=== PATIENT | male | born 1960 | race Caucasian/White ===

== ENCOUNTER 2022-11-22 07:31 | Emergency (ER) | payer MEDICARE, MEDICAID, SELFPAY ==
--- NOTE | ~2022-11-22 | XR_ITS ---
EXAMINATION: XR CHEST CLINICAL INFORMATION: Chest pain COMPARISON: None available. TECHNIQUE: Frontal view of the chest was obtained. FINDINGS: The cardiac silhouette is slightly enlarged. There are post-CABG changes. There is pulmonary venous redistribution, increased perihilar markings and small bilateral pleural effusions. Findings are suggestive of a PA chest. Median sternotomy with broken superior wires. XR/XR chest 1V IMPRESSION: Mild CHF.
--- NOTE | ~2022-11-22 | CT_ITS ---
EXAMINATION: CT ANGIOGRAM OF THE CHEST WITH AND WITHOUT CONTRAST (CT PULMONARY ANGIOGRAM FOR PE) CT ABDOMEN AND PELVIS WITH CONTRAST CLINICAL INFORMATION: Chest pain. Recent surgery. PE? Abdominal pain. COMPARISON: 11/22/2015 TECHNIQUE: Prior to contrast administration, noncontrast localization images were obtained. Subsequently, multidetector volumetric imaging was performed from the thoracic inlet to the pubic symphysis following the administration of 85 mL Omnipaque 350 intravenous contrast. This was followed by multidetector acquisition of the abdomen and pelvis. No contrast reaction reported Sagittal, coronal, and MIP oblique sagittal reformatted images were obtained on the CT workstation, uploaded to PACS, and reviewed. This CT examination was performed using dose optimization techniques as appropriate, variously including the following: *Automated exposure control *Adjustment of mA and/or kV according to patient size (this includes techniques or standardized protocols for targeted exams where dose is matched to indication/reason for exam; i.e. extremities or head) *Use of iterative reconstruction technique Total exam dose-length product 890 mGy-cm FINDINGS: QUALITY OF STUDY/CONTRAST BOLUS: Satisfactory. PULMONARY ARTERIES: No pulmonary arterial filling defect is seen within the anterior aspect of the left lower lobe and segmental and subsegmental branches, series 10 image 268. There is also subsegmental right lower lobe pulmonary artery filling defect on image 335. Right middle lobe segmental filling defect on image 228. THORACIC AORTA: No aneurysm or dissection. LUNG: The central airways are patent. Severe centrilobular and paraseptal emphysema. Small bilateral pleural effusions with associated atelectasis. No pneumothorax. MEDIASTINUM: Enlarged heart size. Coronary artery calcifications are present. No pericardial effusion. No hilar or mediastinal lymphadenopathy. No evidence of septal bowing or right heart strain. CHEST WALL/AXILLA: No axillary or internal mammary lymphadenopathy. LIVER, GALLBLADDER, AND BILIARY TREE: Normal size of the liver with somewhat heterogeneous attenuation. No focal hepatic lesion seen. No ductal dilatation. The gallbladder is unremarkable with no evidence of radiopaque gallstones, gallbladder wall thickening, or obvious pericholecystic inflammatory changes. PANCREAS: Unremarkable. SPLEEN: Unremarkable. ADRENAL GLANDS: Unremarkable. KIDNEYS AND URETERS: The kidneys are normal in size, shape, and attenuation. No hydronephrosis, hydroureter, or calculi seen. No perinephric stranding. BLADDER: Unremarkable. GASTROINTESTINAL TRACT: There is a gastrojejunostomy tube which coils in the stomach. There appears to be a gastrojejunal anastomosis separate anastomosis in the right upper quadrant. Associated with this there is a complex fluid collection with gas. This area measures 6.2 x 4.3 cm on image 34. This measures 7.6 cm CC and is mostly ill-defined. Small amount of free fluid in the pelvis. Normal caliber small bowel without obstruction. Gas and stool within the colon with mild colonic stool burden. No definite free intraperitoneal air. ABDOMINAL WALL: Midline skin lui anteriorly. Diffuse anasarca. LYMPH NODES: Normal. VASCULAR: Aortobiiliac stent graft. Extensive atherosclerotic vascular calcification. PELVIC VISCERA: The prostate and seminal vesicles are unremarkable. OSSEOUS STRUCTURES: No acute or suspicious osseous abnormality. Mild degenerative changes of the spine and hips. CT/CT angio chest PE protocol IMPRESSION: 1. There are bilateral segmental and subsegmental pulmonary emboli. No evidence for elevated right heart pressures. 2. Small bilateral pleural effusions with associated atelectasis. Severe emphysema. 3. Patient is status post gastrojejunal anastomosis status post reported perforated duodenal ulcer. Associated with this there is a complex fluid collection with gas in the right upper quadrant. This is concerning for developing abscess. 4. Gastrojejunostomy tube curls in the stomach. VTE: positive This critical result was discussed with RANJIT Morejon by telephone at 11/22/2022 11:01 AM and it was ascertained that the content and urgency of the report was understood at the time of direct communication.
[2022-11-22 07:46] VITALS: BP 118/83; BP 124/80; PULSE 104; PULSE 81; RESP 16; TEMP 36.8; O2SAT 93; BMI 20.3
[2022-11-22 07:51] VITALS: PULSE 122
--- NOTE | 2022-11-22 07:51 | ECG_ITS ---
Test Reason : chest pain Blood Pressure : / mmHG Vent. Rate : 122 BPM Atrial Rate : 000 BPM P-R Int : 000 ms QRS Dur : 132 ms QT Int : 340 ms P-R-T Axes : 000 211 -01 degrees QTc Int : 484 ms Atrial fibrillation with rapid ventricular response with premature ventricular or aberrantly conducted complexes Right bundle branch block Abnormal ECG When compared with ECG of 28-NOV-2015 03:07, Atrial fibrillation has replaced Sinus rhythm Vent. rate has increased BY 47 BPM Right bundle branch block is now Present Referred By: Leroy Cooper Electronically Signed By:Curly Swartz
[2022-11-22 08:20] LABS: MANUAL DIFF FLAG NO
[2022-11-22] MEDS: HYDROmorphone HCl 0.5 MG/0.5 ML SYRINGE IVPUSH ×2 (08:22→11:31)
--- NOTE | 2022-11-22 08:23 | PC.NURSE ---
pt arrived via ems from [facility]; axox4, VSS, respirations even and unlabored, skin wpd, cap refill <3 seconds, sats 93-96% 2L NC, rapid afib on monitor 103-122bpm, Leroy CHURCH aware. c/o cp & dyspnea x 7 hours. abd incision from previous surgery intact lui in place no s+s of infection; procedure for bleeding ulcers done at [facility] 2-3 days ago. gtube dressing in place. pt states abd pain around incision. iv established, labs drawn, pt medicated per jul. pt on bedside heart monitor, call calzada within reach. awaiting imaging.
[2022-11-22 08:26] LABS: Basophils Percent Auto 0.3 % (0-2); Eosinophils Absolute Auto 0.1 X10*3/uL (0.0-0.4); Eosinophils Percent Auto 0.6 % (0-4); Hematocrit 30.1 % (42.0-52.0); Hemoglobin 8.6 g/dl (14.0-18.0); Imm Gran Abs Auto 0.08 X10*3/uL (0.00-0.03); Imm Gran Pct Auto 0.5 % (0.0-0.4); Lymphocytes Absolute Auto 1.1 X10*3/uL (1.2-4.9); Mean Corpuscular HGB Conc 28.6 g/dl (31.0-36.0); Mean Corpuscular Hemoglobin 19.2 pg (27.0-33.0); Mean Platelet Volume 9.9 fL (9.4-12.4); Monocytes Absolute Auto 0.8 X10*3/uL (0.1-1.2); Monocytes Percent Auto 5.1 % (2-11); Neutrophils Absolute Auto 13.8 x10*3/uL (2.0-8.3); Neutrophils Percent Auto 86.5 % (45-73); Platelet Count 429 X10*3/uL (160-400); Red Blood Count 4.49 X10*6/uL (4.60-5.80); Red Cell Distribution Width 25.2 % (11.0-16.0); White Blood Count 15.9 X10*3/uL (4.8-10.8)
[2022-11-22 08:28] LABS: INTERNATIONAL NORM RATIO 1.4 (0.9-1.1); Prothrombin Time 16.5 SEC (10.0-13.1)
[2022-11-22 08:31] LABS: Partial Thromboplastin Time 27.2 SEC (26.0-36.4)
[2022-11-22 08:41] LABS: COVID-19 Test Negative (Negative); IDNOW Serial# 08D9AD1C
[2022-11-22 08:42] LABS: B Type Natriuretic Peptide 406 pg/mL (<100)
[2022-11-22 08:44] LABS: Troponin-I High Sensitivity 15.8 ng/L (<3.5-35.0)
[2022-11-22] MEDS: dilTIAZem HCL 50 MG/10 ML VIAL 10 MG IVPUSH (08:58)
[2022-11-22 09:02] VITALS: BP 114/63; PULSE 106; RESP 17; O2SAT 92
--- NOTE | 2022-11-22 09:06 | PC.NURSE ---
pt speaking full clear sentences; pt medicated per mar cp improved slightly. inspiratory crackles to bilat. lower lobes. +bs x4. sats remain 90-95% RA.
[2022-11-22 09:17] LABS: Anion Gap 10 (12-20)
[2022-11-22 09:21] LABS: Alanine Aminotransferase 23 U/L (0-40); Albumin Level 2.5 g/dL (3.5-5.0); Alkaline Phosphatase 91 U/L (39-117); Aspartate Amino Transferase 23 U/L (5-37); Bilirubin Total 0.4 mg/dL (0.0-1.0); Blood Urea Nitrogen 16 mg/dL (9-16); Calcium 8.3 mg/dL (8.4-10.2); Carbon Dioxide 27 mmol/L (22-29); Chloride 101 mmol/L (96-108); Creatinine Clr Calc Pharmacy 96.9; Estimated Glomerular Filt Rate > 60; Glucose Random 111 mg/dL (60-115); Lipase 30 U/L (8-78); Potassium 4.3 mmol/L (3.3-5.1); Sodium 134 mmol/L (135-145); Total Protein 6.2 g/dL (6.5-8.0)
--- NOTE | 2022-11-22 10:46 | ED.CHESTPAIN ---
HPI - Chest Pain General Chief Complaint: Chest Pain Stated Complaint: Pain s/p stomach surgery per EMS Time Seen by Provider: 11/22/22 07:37 Source: patient Mode of arrival: ambulatory Limitations: no limitations History of Present Illness HPI narrative: 62-year-old male history of AFib, CABG, multiple history of GI bleed, and recent perforated abdomen surgery performed at [facility] presents to ED for chest pain that began at 01:00 this morning and also abdominal pain at surgical site that began this morning at 01:00. Patient states no fever, chills, leg swelling, or calf pain. Patient from [facility]. Patient states he was discharged from [facility] 2 days ago. Related Data Allergies Allergy/AdvReac Type Severity Reaction Status Date / Time celecoxib [From CELEBREX] Allergy Unknown UNKNOWN Verified 11/22/22 08:37 fluoxetine [Prozac] Allergy Unknown Unknown Verified 11/22/22 08:37 hydrocodone [HYDROCODONE] Allergy Unknown ITCHING Verified 11/22/22 08:37 ketamine Allergy Unknown Unknown Verified 11/22/22 08:37 oxycodone [OXYCODONE] Allergy Unknown ITCHING Verified 11/22/22 08:37 acetaminophen [From Tylenol] Allergy Unknown Verified 11/22/22 08:38 NSAIDS (Non-Steroidal AdvReac Severe HX GI Verified 11/22/22 08:37 Anti-Inflamma BLEEDS [NSAIDS (NON-STEROIDAL ANTI-INFLAMMA] morphine [MORPHINE] AdvReac Unknown UNKNOWN Verified 11/22/22 08:37 MUSCLE RELAXERS Allergy Unknown Unknown Uncoded 11/22/22 08:37 Review of Systems Review of Systems: Chest pain, or palpitation, no abdominal pain. Yes all other systems are reviewed and are negative [facility] Social History Social History Advance Directives: No Physical Exam Vital Signs: Vital Signs: Last Vital Signs Temp 98.7 F 11/22/22 12:02 Pulse 103 H 11/22/22 16:19 Resp 20 11/22/22 16:19 BP 125/77 11/22/22 16:19 Pulse Ox 96 11/22/22 16:19 O2 Del Method Nasal Cannula 11/22/22 16:19 O2 Flow Rate 3 11/22/22 16:19 BMI result Body Mass Index 20.3 Const: General: cooperative, healthy appearing, comfortable, no acute distress, well developed, alert, awake and Physically active Orientation/consciousness: oriented to person, oriented to place, oriented to time and patient oriented x3 HEENT: Head: Yes normal to inspection, Yes No palpable skull fracture present, Yes normocephalic, Yes atraumatic and No abrasion Eyes: General: appearance normal, both eyes and all related structures Neck: Neck: Yes normal visual inspection, Yes full ROM, Yes no lymphadenopathy, Yes no meningeal signs, Yes trachea midline, Yes supple, No anterior neck swelling and No tender Chest: Chest palpation & inspection: normal inspection of the chest and normal palpation of entire chest wall Resp: Effort & Inspection: normal respiratory effort and able to speak in complete sentences Auscultation: clear to auscultation bilaterally Cardio: Jugular venous distension: no JVD Heart sounds: S1 normal heart sound present and S2 normal heart sound present GI: Inspection: Yes normal to inspection and No abdominal wall ecchymosis Palpation (GI): Tenderness to palpation present (GI) (At mid abdomen/surgical site. Negative for erythema, pus discharge, odor) : General: No CVA tenderness and Yes no CVA tenderness Back/Spine/Pelvis: Back: no CVA tenderness, No CVA tenderness and No back tenderness Skin: General skin exam: no rashes or lesions noted and elasticity normal Neuro: General: oriented to person, oriented to place, oriented to time, patient oriented x3, gait normal, tone normal, moves all extremities, Normal light touch and pain sensation, no meningeal signs, no focal motor deficits, CN's II-XI intact bilaterally and normal sensation to monofilament Extrem: Other: Bilateral lower extremity negative for swelling, pitting edema, or calf tenderness. General: Yes normal to inspection and Yes full ROM Psych: Appearance: grossly normal, well kempt and not disheveled Medications Administered Generic Name Dose Route Start Last Admin Trade Name Freq PRN Reason Stop Dose Admin Heparin Sodium/Sodium Chloride 25,000 unit in 250 mls @ 0 mls/hr 11/22/22 12:45 11/22/22 13:42 Heparin Sodium,Porcine/1/2ns IVCONT 14 units/kg/hr .Q0M JASON 9.77 mls/hr Administration Protocol Per Protocol Discontinued Medications Generic Name Dose Route Start Last Admin Trade Name Freq PRN Reason Stop Dose Admin Diltiazem HCl 10 mg 11/22/22 08:13 11/22/22 08:58 Diltiazem Hcl 50 Mg/10 Ml Vial IVPUSH 11/22/22 08:14 10 mg STAT STA Administration Heparin Sodium (Porcine) 5,600 unit 11/22/22 12:37 11/22/22 13:39 Heparin Sodium,Porcine 5,000 Unit/Ml Vial 80 unit/kg (5600 unit) 11/22/22 12:38 5,600 unit IVPUSH Administration ONCE ONE Hydromorphone HCl 0.5 mg 11/22/22 07:51 11/22/22 08:22 Hydromorphone Hcl 0.5 Mg/0.5 Ml Syringe IVPUSH 11/22/22 07:52 0.5 mg ONCE ONE Administration Protocol Hydromorphone HCl 0.5 mg 11/22/22 09:45 11/22/22 11:31 Hydromorphone Hcl 0.5 Mg/0.5 Ml Syringe IVPUSH 11/22/22 09:46 0.5 mg ONCE ONE Administration Protocol Hydromorphone HCl 0.25 mg 11/22/22 14:16 11/22/22 14:49 Hydromorphone Hcl 0.5 Mg/0.5 Ml Syringe IVPUSH 11/22/22 14:17 0.25 mg ONCE ONE Administration Protocol Hydromorphone HCl 0.25 mg 11/22/22 16:09 11/22/22 16:20 Hydromorphone Hcl 0.5 Mg/0.5 Ml Syringe IVPUSH 11/22/22 16:10 0.25 mg ONCE ONE Administration Protocol Piperacillin Sod/Tazobactam 50 mls @ 100 mls/hr 11/22/22 12:27 11/22/22 13:55 Sod 3.375 gm/ Sodium Chloride IV 11/22/22 12:56 Infused ONCE ONE Infusion Medical Decision Making Medical Decision Making MDM Narrative: 62-year-old male history of heart attacks, CAB, multiple GI bleeds in most recent discharge 2 days ago for perforated duodenum surgery presents to ED for chest pain/palpitations beginning since 01:00 and abdominal pain at surgical site since 01:00. Due to recent surgery and chest pain patient will be worked up for PE and also for any abdominal injury. Patient EKG RVR. Patient given Cardizem. Heart rate highest was 130. Patient can only take Dilaudid patient given Dilaudid 1 mg total. Patient on oxygen. 11:50am: Patient positive for pulmonary embolus and abdominal abscess. Case discussed with Dr. Fuentes ED attending and Dr. Calderon vascular surgeon. Dr. Calderon states patient will most likely need IVC, but if there is no blood in rectum patient to receive heparin in the meantime. [facility] surgery contacted waiting for response. Rectal exam negative for occult blood will send a culture swab blood upstairs. I reviewed patient's patient states notes any shows that patient's hemoglobin at [facility] and today is at baseline. As per [facility] nose patient had a complicated stay which involve perforated duodenum which led to Billroth II reconstruction and gastro jejunostomy tube placement. Patient was in STICU. 12:28pm- patient accetpted by [facility] Surgeon Dr. Bonilla. I spoke with IT QUALITY ASSURANCE ANALYST Manju. 12:41pm. Acute stool rectal exam negative. Heparin dose started Differential Diagnosis Differential Diagnoses: The differential diagnosis associated with the presentation includes (PE, myocardial infarction, CHF, abdominal perforation, abdominal abscess, UTI) Admission/Observation Consideration of admission/observation: Escalation of care including admission/observation considered Lab Data 11/22/22 08:15 11/22/22 09:01 Labs: Lab Results 11/22/22 11/22/22 11/22/22 Range/Units 08:15 08:15 08:15 WBC 15.9 H (4.8-10.8) X10*3/uL RBC 4.49 L (4.60-5.80) X10*6/uL Hgb 8.6 L (14.0-18.0) g/dl Hct 30.1 L (42.0-52.0) % MCV 67.0 L (80.0-98.0) fL MCH 19.2 L (27.0-33.0) pg MCHC 28.6 L (31.0-36.0) g/dl RDW 25.2 H (11.0-16.0) % Plt Count 429 H (160-400) X10*3/uL MPV 9.9 (9.4-12.4) fL Immature Gran % (Auto) 0.5 H (0.0-0.4) % Neut % (Auto) 86.5 H (45-73) % Lymph % (Auto) 7.0 L (20-40) % [place] % (Auto) 5.1 (2-11) % Eos % (Auto) 0.6 (0-4) % Baso % (Auto) 0.3 (0-2) % Lymph # (Auto) 1.1 L (1.2-4.9) X10*3/uL [place] # (Auto) 0.8 (0.1-1.2) X10*3/uL Eos # (Auto) 0.1 (0.0-0.4) X10*3/uL Baso # (Auto) 0.0 (0.0-0.2) X10*3/uL Abs Immat Gran (auto) 0.08 H (0.00-0.03) X10*3/uL Absolute Neuts (auto) 13.8 H (2.0-8.3) x10*3/uL Absolute Nucleated RBC 0.000 (0.0-0.012) X10*3/uL Nucleated RBC % (auto) 0.0 (0.0-0.2) /100WBC PT 16.5 H (10.0-13.1) SEC INR 1.4 H (0.9-1.1) APTT 27.2 (26.0-36.4) SEC aPTT Heparin Protocol Sodium (135-145) mmol/L Potassium (3.3-5.1) mmol/L Chloride (96-108) mmol/L Carbon Dioxide (22-29) mmol/L Anion Gap (12-20) BUN (9-16) mg/dL Creatinine (0.5-1.4) mg/dL Estim Creat Clear Calc Estimated GFR Random Glucose (60-115) mg/dL Lactic Acid (0.5-2.0) mmol/L Calcium (8.4-10.2) mg/dL Total Bilirubin (0.0-1.0) mg/dL AST (5-37) U/L ALT (0-40) U/L Alkaline Phosphatase (39-117) U/L Troponin I High Sens 15.8 (<3.5-35.0) ng/L B-Natriuretic Peptide (<100) pg/mL Total Protein (6.5-8.0) g/dL Albumin (3.5-5.0) g/dL Lipase (8-78) U/L Urine Color Urine Appearance Urine pH (5.0-9.0) Ur Specific [place] (1.005-1.025) Urine Protein (Neg-Trace) mg/dL Urine Glucose (UA) (Negative) mg/dL Urine Ketones (Negative) mg/dL Urine Blood (Negative) Urine Nitrite (Negative) Ur Leukocyte Esterase (Negative) Stool Occult Blood (NEGATIVE) COVID-19 (SURINDER) (Negative) COVID-19 Clin Com 11/22/22 11/22/22 11/22/22 Range/Units 08:15 08:21 09:01 WBC (4.8-10.8) X10*3/uL RBC (4.60-5.80) X10*6/uL Hgb (14.0-18.0) g/dl Hct (42.0-52.0) % MCV (80.0-98.0) fL MCH (27.0-33.0) pg MCHC (31.0-36.0) g/dl RDW (11.0-16.0) % Plt Count (160-400) X10*3/uL MPV (9.4-12.4) fL Immature Gran % (Auto) (0.0-0.4) % Neut % (Auto) (45-73) % Lymph % (Auto) (20-40) % [place] % (Auto) (2-11) % Eos % (Auto) (0-4) % Baso % (Auto) (0-2) % Lymph # (Auto) (1.2-4.9) X10*3/uL [place] # (Auto) (0.1-1.2) X10*3/uL Eos # (Auto) (0.0-0.4) X10*3/uL Baso # (Auto) (0.0-0.2) X10*3/uL Abs Immat Gran (auto) (0.00-0.03) X10*3/uL Absolute Neuts (auto) (2.0-8.3) x10*3/uL Absolute Nucleated RBC (0.0-0.012) X10*3/uL Nucleated RBC % (auto) (0.0-0.2) /100WBC PT (10.0-13.1) SEC INR (0.9-1.1) APTT (26.0-36.4) SEC aPTT Heparin Protocol Sodium 134 L (135-145) mmol/L Potassium 4.3 (3.3-5.1) mmol/L Chloride 101 (96-108) mmol/L Carbon Dioxide 27 (22-29) mmol/L Anion Gap 10 L (12-20) BUN 16 (9-16) mg/dL Creatinine 0.79 (0.5-1.4) mg/dL Estim Creat Clear Calc 96.9 Estimated GFR > 60 Random Glucose 111 (60-115) mg/dL Lactic Acid (0.5-2.0) mmol/L Calcium 8.3 L (8.4-10.2) mg/dL Total Bilirubin 0.4 (0.0-1.0) mg/dL AST 23 (5-37) U/L ALT 23 (0-40) U/L Alkaline Phosphatase 91 (39-117) U/L Troponin I High Sens (<3.5-35.0) ng/L B-Natriuretic Peptide 406 H (<100) pg/mL Total Protein 6.2 L (6.5-8.0) g/dL Albumin 2.5 L (3.5-5.0) g/dL Lipase 30 (8-78) U/L Urine Color Urine Appearance Urine pH (5.0-9.0) Ur Specific [place] (1.005-1.025) Urine Protein (Neg-Trace) mg/dL Urine Glucose (UA) (Negative) mg/dL Urine Ketones (Negative) mg/dL Urine Blood (Negative) Urine Nitrite (Negative) Ur Leukocyte Esterase (Negative) Stool Occult Blood (NEGATIVE) COVID-19 (SURINDER) Negative (Negative) COVID-19 Clin Com See Note 11/22/22 11/22/22 11/22/22 Range/Units 11:51 14:45 Unknown WBC (4.8-10.8) X10*3/uL RBC (4.60-5.80) X10*6/uL Hgb (14.0-18.0) g/dl Hct (42.0-52.0) % MCV (80.0-98.0) fL MCH (27.0-33.0) pg MCHC (31.0-36.0) g/dl RDW (11.0-16.0) % Plt Count (160-400) X10*3/uL MPV (9.4-12.4) fL Immature Gran % (Auto) (0.0-0.4) % Neut % (Auto) (45-73) % Lymph % (Auto) (20-40) % [place] % (Auto) (2-11) % Eos % (Auto) (0-4) % Baso % (Auto) (0-2) % Lymph # (Auto) (1.2-4.9) X10*3/uL [place] # (Auto) (0.1-1.2) X10*3/uL Eos # (Auto) (0.0-0.4) X10*3/uL Baso # (Auto) (0.0-0.2) X10*3/uL Abs Immat Gran (auto) (0.00-0.03) X10*3/uL Absolute Neuts (auto) (2.0-8.3) x10*3/uL Absolute Nucleated RBC (0.0-0.012) X10*3/uL Nucleated RBC % (auto) (0.0-0.2) /100WBC PT Cancelled (10.0-13.1) SEC INR Cancelled (0.9-1.1) APTT (26.0-36.4) SEC aPTT Heparin Protocol Cancelled Sodium (135-145) mmol/L Potassium (3.3-5.1) mmol/L Chloride (96-108) mmol/L Carbon Dioxide (22-29) mmol/L Anion Gap (12-20) BUN (9-16) mg/dL Creatinine (0.5-1.4) mg/dL Estim Creat Clear Calc Estimated GFR Random Glucose (60-115) mg/dL Lactic Acid 0.9 (0.5-2.0) mmol/L Calcium (8.4-10.2) mg/dL Total Bilirubin (0.0-1.0) mg/dL AST (5-37) U/L ALT (0-40) U/L Alkaline Phosphatase (39-117) U/L Troponin I High Sens (<3.5-35.0) ng/L B-Natriuretic Peptide (<100) pg/mL Total Protein (6.5-8.0) g/dL Albumin (3.5-5.0) g/dL Lipase (8-78) U/L Urine Color Yellow Urine Appearance Clear Urine pH 6.0 (5.0-9.0) Ur Specific [place] 1.015 (1.005-1.025) Urine Protein Negative (Neg-Trace) mg/dL Urine Glucose (UA) Negative (Negative) mg/dL Urine Ketones Negative (Negative) mg/dL Urine Blood Negative (Negative) Urine Nitrite Negative (Negative) Ur Leukocyte Esterase Negative (Negative) Stool Occult Blood (NEGATIVE) COVID-19 (SURINDER) (Negative) COVID-19 Clin Com 11/22/22 Range/Units Unknown WBC (4.8-10.8) X10*3/uL RBC (4.60-5.80) X10*6/uL Hgb (14.0-18.0) g/dl Hct (42.0-52.0) % MCV (80.0-98.0) fL MCH (27.0-33.0) pg MCHC (31.0-36.0) g/dl RDW (11.0-16.0) % Plt Count (160-400) X10*3/uL MPV (9.4-12.4) fL Immature Gran % (Auto) (0.0-0.4) % Neut % (Auto) (45-73) % Lymph % (Auto) (20-40) % [place] % (Auto) (2-11) % Eos % (Auto) (0-4) % Baso % (Auto) (0-2) % Lymph # (Auto) (1.2-4.9) X10*3/uL [place] # (Auto) (0.1-1.2) X10*3/uL Eos # (Auto) (0.0-0.4) X10*3/uL Baso # (Auto) (0.0-0.2) X10*3/uL Abs Immat Gran (auto) (0.00-0.03) X10*3/uL Absolute Neuts (auto) (2.0-8.3) x10*3/uL Absolute Nucleated RBC (0.0-0.012) X10*3/uL Nucleated RBC % (auto) (0.0-0.2) /100WBC PT (10.0-13.1) SEC INR (0.9-1.1) APTT (26.0-36.4) SEC aPTT Heparin Protocol Sodium (135-145) mmol/L Potassium (3.3-5.1) mmol/L Chloride (96-108) mmol/L Carbon Dioxide (22-29) mmol/L Anion Gap (12-20) BUN (9-16) mg/dL Creatinine (0.5-1.4) mg/dL Estim Creat Clear Calc Estimated GFR Random Glucose (60-115) mg/dL Lactic Acid (0.5-2.0) mmol/L Calcium (8.4-10.2) mg/dL Total Bilirubin (0.0-1.0) mg/dL AST (5-37) U/L ALT (0-40) U/L Alkaline Phosphatase (39-117) U/L Troponin I High Sens (<3.5-35.0) ng/L B-Natriuretic Peptide (<100) pg/mL Total Protein (6.5-8.0) g/dL Albumin (3.5-5.0) g/dL Lipase (8-78) U/L Urine Color Urine Appearance Urine pH (5.0-9.0) Ur Specific [place] (1.005-1.025) Urine Protein (Neg-Trace) mg/dL Urine Glucose (UA) (Negative) mg/dL Urine Ketones (Negative) mg/dL Urine Blood (Negative) Urine Nitrite (Negative) Ur Leukocyte Esterase (Negative) Stool Occult Blood NEGATIVE (NEGATIVE) COVID-19 (SURINDER) (Negative) COVID-19 Clin Com Independent Interpretation I performed an independent interpretation of an: EKG (Atrial fibrillation with RVR. Ventricular rate 122. QRS 132. Cares for 84. Negative STEMI) and CT Scan Radiology Impression Discussion of test interpretation with radiology: I have reviewed the radiologist's reading. Radiologist Impression: Patient: Emir Rowan MR#: [id number] : 1960 Acct:[id number] Age/Sex: 62 / M ADM Date: 11/22/22 Loc: HO.ED Attending Dr: Ordering Physician: Leroy Cooper Date of Service: 11/22/22 Procedure(s): CT angio chest PE protocol Accession Number(s): [id number] cc: Leroy Cooper~ EXAMINATION: CT ANGIOGRAM OF THE CHEST WITH AND WITHOUT CONTRAST (CT PULMONARY ANGIOGRAM FOR PE) CT ABDOMEN AND PELVIS WITH CONTRAST CLINICAL INFORMATION: Chest pain. Recent surgery. PE? Abdominal pain. COMPARISON: 11/22/2015? TECHNIQUE: Prior to contrast administration, noncontrast localization images were obtained. ? Subsequently, multidetector volumetric imaging was performed from the thoracic inlet to the pubic symphysis following the administration of 85 mL Omnipaque 350 intravenous contrast. This was followed by multidetector acquisition of the abdomen and pelvis. No contrast reaction reported Sagittal, coronal, and MIP oblique sagittal reformatted images were obtained on the CT workstation, uploaded to PACS, and reviewed. This CT examination was performed using dose optimization techniques as appropriate, variously including the following: *Automated exposure control *Adjustment of mA and/or kV according to patient size (this includes techniques or standardized protocols for targeted exams where dose is matched to indication/reason for exam; i.e. extremities or head) *Use of iterative reconstruction technique Total exam dose-length product 890 mGy-cm FINDINGS: QUALITY OF STUDY/CONTRAST BOLUS: Satisfactory. PULMONARY ARTERIES: No pulmonary arterial filling defect is seen within the anterior aspect of the left lower lobe and segmental and subsegmental branches, series 10 image 268. There is also subsegmental right lower lobe pulmonary artery filling defect on image 335. Right middle lobe segmental filling defect on image 228.? THORACIC AORTA: No aneurysm or dissection. LUNG: The central airways are patent. Severe centrilobular and paraseptal emphysema. Small bilateral pleural effusions with associated atelectasis. No pneumothorax. MEDIASTINUM: Enlarged heart size. Coronary artery calcifications are present. No pericardial effusion.? No hilar or mediastinal lymphadenopathy.? No evidence of septal bowing or right heart strain. CHEST WALL/AXILLA: No axillary or internal mammary lymphadenopathy. LIVER, GALLBLADDER, AND BILIARY TREE: Normal size of the liver with somewhat heterogeneous attenuation. No focal hepatic lesion seen. No ductal dilatation. The gallbladder is unremarkable with no evidence of radiopaque gallstones, gallbladder wall thickening, or obvious pericholecystic inflammatory changes.? PANCREAS: Unremarkable.? SPLEEN: Unremarkable.? ADRENAL GLANDS: Unremarkable.? KIDNEYS AND URETERS: The kidneys are normal in size, shape, and attenuation. No hydronephrosis, hydroureter, or calculi seen. No perinephric stranding. ? BLADDER: Unremarkable.? GASTROINTESTINAL TRACT: There is a gastrojejunostomy tube which coils in the stomach. There appears to be a gastrojejunal anastomosis separate anastomosis in the right upper quadrant. Associated with this there is a complex fluid collection with gas. This area measures 6.2 x 4.3 cm on image 34. This measures 7.6 cm CC and is mostly ill-defined. Small amount of free fluid in the pelvis. Normal caliber small bowel without obstruction. Gas and stool within the colon with mild colonic stool burden. No definite free intraperitoneal air. ABDOMINAL WALL: Midline skin lui anteriorly. Diffuse anasarca.? LYMPH NODES: Normal. VASCULAR: Aortobiiliac stent graft. Extensive atherosclerotic vascular calcification. PELVIC VISCERA: The prostate and seminal vesicles are unremarkable. OSSEOUS STRUCTURES: No acute or suspicious osseous abnormality. Mild degenerative changes of the spine and hips.? CT/CT angio chest PE protocol IMPRESSION: 1.? There are bilateral segmental and subsegmental pulmonary emboli. No evidence for elevated right heart pressures. 2.? Small bilateral pleural effusions with associated atelectasis. Severe emphysema. 3.? Patient is status post gastrojejunal anastomosis status post reported perforated duodenal ulcer. Associated with this there is a complex fluid collection with gas in the right upper quadrant. This is concerning for developing abscess. 4.? Gastrojejunostomy tube curls in the stomach. ? VTE: positive ? This critical result was discussed with RANJIT Morejon by telephone at 11/22/2022 11:01 AM and it was ascertained that the content and urgency of the report was understood at the time of direct communication. Dictated By: Benito Jones MD Signed By: <Electronically signed by Benito Jones MD in OV> 11/22/22 1102 Critical Care Time Critical Care Time Critical Care Time: Yes Total Critical Care Time: 60 Attestation: Patient positive for pulmonary embolus and abdominal abscess. Case discussed with vascular surgeon Dr. Calderon who states patient probably will be candidate for IVC in the future but does states if patient has no blood on rectal exam heparin can be started. Case discussed with [facility] surgery and was accepted by Dr. Rivera of [facility]. Patient started on heparin Discharge Plan Discharge Clinical Impression: Pulmonary embolism, Abscess, intra-abdominal, postoperative Patient Disposition: er Acute [facility] Transfer Details: [facility] Print Language: Tajik
[2022-11-22 12:02] VITALS: BP 127/75; PULSE 119; RESP 16; TEMP 37.1; O2SAT 94
--- NOTE | 2022-11-22 12:12 | PC.NURSE ---
2nd iv established, labs drawn, pt medicated per jul, chaperoned Leroy CHURCH for rectal exam. awaiting plan with [facility] d/t result of CT. pt anxious at times but able to be reassured. skin pwd, no difficulty breathing, improved tachycardia 110bpm. pt resting in stretcher, call calzada within reach.
[2022-11-22 12:33] LABS: OBS Int Ctl Valid YES; OBS1 NEGATIVE (NEGATIVE)
[2022-11-22] MEDS: Piperacillin Sodium/Tazobactam 3.375 GM in 0.9 % Sodium Chloride 50 ML IV (12:40)
[2022-11-22 12:49] LABS: Lactic Acid 0.9 mmol/L (0.5-2.0)
[2022-11-22 12:58] LABS: Appearance Urine Clear; Color Urine Yellow; Glucose Urine UA Negative (Negative); Leukocyte Esterase Urine Negative (Negative); Nitrite Urine Negative (Negative); Specific Gravity - Urine 1.015 (1.005-1.025); Urine Blood Negative (Negative); Urine Ketones Negative (Negative); Urine Protein Negative (Neg-Trace)
[2022-11-22] MEDS: Heparin Sodium,Porcine 5,000 UNIT/ML VIAL 5600 UNIT IVPUSH (13:39)
[2022-11-22] MEDS: Heparin Sodium,Porcine/1/2NS 25,000 UNIT/250 ML IV.SOLN 9.77 UNIT IVCONT (13:42)
[2022-11-22 13:51] VITALS: BP 124/70; PULSE 113; RESP 20; O2SAT 100
--- NOTE | 2022-11-22 13:54 | PC.NURSE ---
axox4, vss, tachycardia improving heart rate ranging 95-105 BPM on monitor, sats remain 96-98% 3L NC, skin wpd. pt medicated per mar; heparin drip started per order. reports cp persists; Leroy CHURCH aware. awaiting [facility] room assignment for transfer.
[2022-11-22] MEDS: HYDROmorphone HCl 0.5 MG/0.5 ML SYRINGE 0.25 MG IVPUSH ×2 (14:49→16:20)
--- NOTE | 2022-11-22 16:01 | MHC.EDTECH ---
Suzy from [facility] patient placement called at 1550 with bed assignment. Pt going to SW6 Bed 18. Accepting MD Schaeffer. Bked amb with Ilia. ETA 1 hr.
[2022-11-22 16:19] VITALS: BP 125/77; PULSE 103; RESP 20; O2SAT 96
--- NOTE | 2022-11-22 17:45 | PC.NURSE ---
attempted to call report to [facility] sw nurse saurav . stenographer secretary stated nurse will call back as she is busy with new admission.
--- NOTE | 2022-11-22 17:54 | PC.NURSE ---
report given to [facility] sw6 nurse jaky.
== END 2022-11-22 17:59 | disposition short-term general hospital (02) ==
PROVIDERS: Physician Assistant; Emergency Provider Emergency Medicine; PCP Family Medicine
DX: I26.99 Other pulmonary embolism without acute cor pulmonale (principal); L02.211 Cutaneous abscess of abdominal wall; K92.2 Gastrointestinal hemorrhage, unspecified; Z20.822 Contact with and (suspected) exposure to COVID-19; G89.18 Other acute postprocedural pain; I48.91 Unspecified atrial fibrillation
CPT/HCPCS: 36415; 71045; 71275; 74177; 80053; 81003; 82272; 83605; 83690; 83880; 84484; 85025; 85610; 85730; 87040; 87635; 93005; 96365; 96366; 96367; 96375; 96376; 99285; J1170; J1643; J2543

== ENCOUNTER → 2022-11-22 07:51 | Outpatient (BNV) | payer MEDICARE, MEDICAID, SELFPAY | PROVIDERS: Emergency Provider Emergency Medicine; PCP Family Medicine; Visit Provider Internal Medicine Cardiovascular Disease | DX: R07.9 Chest pain, unspecified (principal) | CPT/HCPCS: 93010 ==

== ENCOUNTER 2023-01-31 16:52 | Emergency (ER) | payer MEDICARE, MEDICAID, SELFPAY ==
[2023-01-31 17:02] VITALS: BP 113/67; PULSE 80; O2SAT 88; BMI 19.2
--- NOTE | 2023-01-31 17:03 | ECG_ITS ---
Test Reason : OVERDOSE Blood Pressure : / mmHG Vent. Rate : 078 BPM Atrial Rate : 000 BPM P-R Int : 000 ms QRS Dur : 132 ms QT Int : 408 ms P-R-T Axes : 000 -84 063 degrees QTc Int : 465 ms Atrial fibrillation with premature ventricular or aberrantly conducted complexes Left axis deviation Right bundle branch block Inferior infarct , age undetermined Abnormal ECG When compared with ECG of 22-NOV-2022 07:58, Vent. rate has decreased BY 44 BPM QRS voltage has decreased T wave inversion more evident in Anterior leads Referred By: Minoo Fan Electronically Signed By:SAPNA CLEMENTS
[2023-01-31 17:09] VITALS: BP 113/69; PULSE 84; TEMP 36.4
--- NOTE | 2023-01-31 17:13 | ED.OVERDOSE ---
HPI - Overdose General Chief Complaint: Overdose Stated Complaint: OVERDOSE OF EXCEDRIN Source: patient and old records reviewed Mode of arrival: EMS Limitations: other (poor historian ) History of Present Illness HPI Narrative: 63 yo male with PMH of AAA s/p repair, GERD, PE in November s/p IVC filter on eliquis, CAD s/p CABG, CHF with reduced EF, 4.5cm aortic root, afib, HTN, COPD on home O2, substance use disorder, anxiety, s/p perforated ulcer with ex lap on 12/26 he states he has chronic neck pain and they only give him gabapentin and he cannot take it anymore. Today before lunch he took #12 250mg excedrin to treat the pain. Now he feels dizziness and his stomach is sore with nausea/vomiting. He states he has pain in the neck which is not new. He states he didn't know he wasn't supposed to take aspirin. He states this was not a suicide attempt. He is asking to go to a custodial I cannot care for myself . He is a poor historian and cannot tell me much about his history. He denies ringing in the ears. He states he doesn't know much. complaint: accidental overdose Onset (ago): hour(s) (6+) Intent: other (wanted to treat his neck pain) How Overdose Was Discovered: other (felt nauseated and dizzy) Associated symptoms: dizziness and nausea/vomiting Treatments Prior to Arrival: none Related Data Allergies Allergy/AdvReac Type Severity Reaction Status Date / Time celecoxib [From CELEBREX] Allergy Unknown UNKNOWN Verified 11/22/22 08:37 fluoxetine [Prozac] Allergy Unknown Unknown Verified 11/22/22 08:37 hydrocodone [HYDROCODONE] Allergy Unknown ITCHING Verified 11/22/22 08:37 ketamine Allergy Unknown Unknown Verified 11/22/22 08:37 oxycodone [OXYCODONE] Allergy Unknown ITCHING Verified 11/22/22 08:37 acetaminophen [From Tylenol] Allergy Unknown Verified 11/22/22 08:38 NSAIDS (Non-Steroidal AdvReac Severe HX GI Verified 11/22/22 08:37 Anti-Inflamma BLEEDS [NSAIDS (NON-STEROIDAL ANTI-INFLAMMA] morphine [MORPHINE] AdvReac Unknown UNKNOWN Verified 11/22/22 08:37 MUSCLE RELAXERS Allergy Unknown Unknown Uncoded 11/22/22 08:37 Review of Systems Review of Systems: Constitutional : No Fever, No Chills, No Fatigue ENT/Mouth : No sore throat, No Rhinorrhea Eyes: No Eye Pain, No Swelling, No Redness Cardiovascular : No Chest Pain, No SOB, No Dyspnea on Exertion Respiratory : No Cough, No Sputum Gastrointestinal : pos Nausea, No Vomiting, No Diarrhea, No abdominal Pain Genitourinary : No Dysuria, No Urinary Frequency, No Hematuria, Musculoskeletal : No joint pain, No Myalgias, No Joint Swelling Skin : No Skin Lesions, No rash Neuro : No Weakness, No Numbness, pos Dizziness, no Headache Psych : No Anxiety/Panic, No Depression Heme/Lymph: No Bruising, No Bleeding,No Lymphadenopathy Endocrine : No Polyuria, No Polydipsia All other systems reviewed and are negative PENDING SALE TO [facility] Past Medical History Attestation statement: The following information was validated with the patient. Medical History Perforated ulcer HTN (hypertension) GERD (gastroesophageal reflux disease) AAA (abdominal aortic aneurysm) Atrial fibrillation CHF (congestive heart failure) COPD (chronic obstructive pulmonary disease) Pulmonary embolism Surgical History H/O exploratory laparotomy Hx of CABG Social History Social History Patient Tobacco Use Status: Former Tobacco user Smoked in Last 30 Days: No Use of substances other than those prescribed or required for medical reasons: Yes Substance Use Type: Marijuana Advance Directives: No Advance Directives Information Provided: No Physical Exam Vital Signs: Vital Signs: Last Vital Signs Temp 97.6 F 01/31/23 17:09 Pulse 81 01/31/23 17:51 Resp 12 01/31/23 17:51 BP 113/69 01/31/23 17:51 Pulse Ox 99 01/31/23 17:51 O2 Del Method Room Air 01/31/23 17:51 BMI result Body Mass Index 19.2 Appearance: Alert. Oriented X3. No acute distress. Flat affect Eyes: Pupils equal, round and reactive to light. ENT: Pharynx normal. Neck: stiff appearing neck, posterior neck scar CVS: Normal heart rate and rhythm. Pulses normal. Respiratory: No respiratory distress. Breath sounds normal. Abdomen: Soft and non-tender. incision is c/d/i Skin: Skin warm and dry. Normal skin color. Normal skin turgor. Extremities: No lower extremity edema. Neuro: Oriented X 3. No motor deficit. No sensory deficit. Course Course Course Narrative: repeat tox labs negative Reevaluation(s) Reevaluation #1: cleared by poison control stable for PT/CM Reevaluation #2: Patient placed in physician observation at 851pm . The indication for observation is that the patient needs more time to see PT/CM for safe DC. At this time the patient is well developed well nourished, lungs clear, CV RRR, abd nontender, neuro is intact. Medications Administered Discontinued Medications Generic Name Dose Route Start Last Admin Trade Name Freq PRN Reason Stop Dose Admin Ondansetron HCl 4 mg 01/31/23 17:03 01/31/23 17:46 Ondansetron Hcl 4 Mg/2 Ml Vial IVPUSH 01/31/23 17:04 4 mg ONCE ONE Administration Pantoprazole Sodium 40 mg 01/31/23 17:03 01/31/23 17:48 Pantoprazole Sodium 40 Mg/10 Ml Vial IVPUSH 01/31/23 17:04 40 mg ONCE ONE Administration Medical Decision Making Medical Decision Making MDM Narrative: 63 yo male with PMH of AAA s/p repair, GERD, PE in November s/p IVC filter on eliquis, CAD s/p CABG, CHF with reduced EF, 4.5cm aortic root, afib, HTN, COPD on home O2, substance use disorder, anxiety, s/p perforated ulcer with ex lap on 12/26, chronic neck pain who state before lunch he ingested 12 tabs of #250mg excedrin. He states he is not SI. He did this for pain. He states he feels that he had pain and didn't know he shouldn't take aspirin with his recent ulcer. He also notes he wants to go to a SNF. At this time labs, IV zofran/protonix and consult to poison control. Will monitor. Differential Diagnosis Differential Diagnoses: The differential diagnosis associated with the presentation includes gastritis, ingestion, poor compliance, poor understanding, KEM, overdose Admission/Observation Consideration of admission/observation: Escalation of care including admission/observation considered observe for PT/CM Consult Healthcare Provider Management of the patient was discussed with: Nursing Home Physician poison control repeat aspirin and tylenol in 2 hours. Lab Data [facility] Lab Attestation statement: I reviewed the patient's lab results. hemoglobin 01/07 at [facility] this month 01/31/23 17:29 01/31/23 17:29 Labs: Lab Results 01/31/23 01/31/23 01/31/23 Range/Units 17:29 17:40 18:13 WBC 6.8 (4.8-10.8) X10*3/uL RBC 4.95 (4.60-5.80) X10*6/uL Hgb 10.2 L (14.0-18.0) g/dl Hct 36.1 L (42.0-52.0) % MCV 72.9 L (80.0-98.0) fL MCH 20.6 L (27.0-33.0) pg MCHC 28.3 L (31.0-36.0) g/dl RDW 21.9 H (11.0-16.0) % Plt Count 331 (160-400) X10*3/uL MPV 9.5 (9.4-12.4) fL Immature Gran % (Auto) 0.3 (0.0-0.4) % Neut % (Auto) 65.7 (45-73) % Lymph % (Auto) 23.8 (20-40) % Noble % (Auto) 7.8 (2-11) % Eos % (Auto) 1.2 (0-4) % Baso % (Auto) 1.2 (0-2) % Lymph # (Auto) 1.6 (1.2-4.9) X10*3/uL Noble # (Auto) 0.5 (0.1-1.2) X10*3/uL Eos # (Auto) 0.1 (0.0-0.4) X10*3/uL Baso # (Auto) 0.1 (0.0-0.2) X10*3/uL Abs Immat Gran (auto) 0.02 (0.00-0.03) X10*3/uL Absolute Neuts (auto) 4.4 (2.0-8.3) x10*3/uL Absolute Nucleated RBC 0.030 H (0.0-0.012) X10*3/uL Nucleated RBC % (auto) 0.4 H (0.0-0.2) /100WBC PT 34.2 H (11.1-13.3) SEC INR 2.8 H (0.9-1.1) VBG pH 7.46 H (7.32-7.43) VBG pCO2 36 mmHg VBG pO2 56 mmHg VBG HCO3 25 (22-26) mmol/L VBG O2 Saturation 86.0 % VBG Base Excess 2.3 mmol/L Sodium 139 (135-145) mmol/L Potassium 4.4 (3.3-5.1) mmol/L Chloride 107 (96-108) mmol/L Carbon Dioxide 21 L (22-29) mmol/L Anion Gap 15 (12-20) BUN 15 (9-16) mg/dL Creatinine 0.86 (0.5-1.4) mg/dL Estim Creat Clear Calc 83.2 Estimated GFR > 60 Random Glucose 141 H (60-115) mg/dL Lactic Acid 2.0 (0.5-2.0) mmol/L Calcium 8.3 L (8.4-10.2) mg/dL Magnesium 2.2 (1.6-2.6) mg/dL Total Bilirubin 0.3 (0.0-1.0) mg/dL Direct Bilirubin 0.1 (0.0-0.5) mg/dL AST 32 (5-37) U/L ALT 10 (0-40) U/L Alkaline Phosphatase 93 (39-117) U/L Total Protein 7.1 (6.5-8.0) g/dL Albumin 2.8 L (3.5-5.0) g/dL Lipase 35 (8-78) U/L Urine Color Urine Appearance Urine pH (5.0-9.0) Ur Specific [place] (1.005-1.025) Urine Protein (Neg-Trace) mg/dL Urine Glucose (UA) (Negative) mg/dL Urine Ketones (Negative) mg/dL Urine Blood (Negative) Urine Nitrite (Negative) Ur Leukocyte Esterase (Negative) Urine RBC (0-2) /HPF Urine WBC (0-5) /HPF Ur Squamous Epith Cells (0-2) /HPF Urine Bacteria (None Seen) Hyaline Casts (0-2) /LPF Salicylates < 5.0 L (15-30) mg/dL Urine Opiates Screen (Not Detect) Urine Fentanyl Screen (Not Detect) Acetaminophen < 17 (<30) mcg/mL Ur Barbiturates Screen (Not Detect) Ur Phencyclidine Scrn (Not Detect) Ur Amphetamines Screen (Not Detect) U Benzodiazepines Scrn (Not Detect) Urine Cocaine Screen (Not Detect) U Marijuana (THC) Screen (Not Detect) Ethyl Alcohol < 10 mg/dL 01/31/23 01/31/23 Range/Units 18:27 19:38 WBC (4.8-10.8) X10*3/uL RBC (4.60-5.80) X10*6/uL Hgb (14.0-18.0) g/dl Hct (42.0-52.0) % MCV (80.0-98.0) fL MCH (27.0-33.0) pg MCHC (31.0-36.0) g/dl RDW (11.0-16.0) % Plt Count (160-400) X10*3/uL MPV (9.4-12.4) fL Immature Gran % (Auto) (0.0-0.4) % Neut % (Auto) (45-73) % Lymph % (Auto) (20-40) % Noble % (Auto) (2-11) % Eos % (Auto) (0-4) % Baso % (Auto) (0-2) % Lymph # (Auto) (1.2-4.9) X10*3/uL Noble # (Auto) (0.1-1.2) X10*3/uL Eos # (Auto) (0.0-0.4) X10*3/uL Baso # (Auto) (0.0-0.2) X10*3/uL Abs Immat Gran (auto) (0.00-0.03) X10*3/uL Absolute Neuts (auto) (2.0-8.3) x10*3/uL Absolute Nucleated RBC (0.0-0.012) X10*3/uL Nucleated RBC % (auto) (0.0-0.2) /100WBC PT (11.1-13.3) SEC INR (0.9-1.1) VBG pH (7.32-7.43) VBG pCO2 mmHg VBG pO2 mmHg VBG HCO3 (22-26) mmol/L VBG O2 Saturation % VBG Base Excess mmol/L Sodium (135-145) mmol/L Potassium (3.3-5.1) mmol/L Chloride (96-108) mmol/L Carbon Dioxide (22-29) mmol/L Anion Gap (12-20) BUN (9-16) mg/dL Creatinine (0.5-1.4) mg/dL Estim Creat Clear Calc Estimated GFR Random Glucose (60-115) mg/dL Lactic Acid (0.5-2.0) mmol/L Calcium (8.4-10.2) mg/dL Magnesium (1.6-2.6) mg/dL Total Bilirubin (0.0-1.0) mg/dL Direct Bilirubin (0.0-0.5) mg/dL AST (5-37) U/L ALT (0-40) U/L Alkaline Phosphatase (39-117) U/L Total Protein (6.5-8.0) g/dL Albumin (3.5-5.0) g/dL Lipase (8-78) U/L Urine Color Yellow Urine Appearance Clear Urine pH 6.0 (5.0-9.0) Ur Specific [place] >= 1.030 H (1.005-1.025) Urine Protein Negative (Neg-Trace) mg/dL Urine Glucose (UA) >=1000 H (Negative) mg/dL Urine Ketones Negative (Negative) mg/dL Urine Blood Negative (Negative) Urine Nitrite Negative (Negative) Ur Leukocyte Esterase Negative (Negative) Urine RBC 0-2 (0-2) /HPF Urine WBC 0-5 (0-5) /HPF Ur Squamous Epith Cells 0-2 (0-2) /HPF Urine Bacteria None Seen (None Seen) Hyaline Casts 0-2 (0-2) /LPF Salicylates < 5.0 L (15-30) mg/dL Urine Opiates Screen Not Detected (Not Detect) Urine Fentanyl Screen Not Detected (Not Detect) Acetaminophen < 17 (<30) mcg/mL Ur Barbiturates Screen Not Detected (Not Detect) Ur Phencyclidine Scrn Not Detected (Not Detect) Ur Amphetamines Screen Not Detected (Not Detect) U Benzodiazepines Scrn Not Detected (Not Detect) Urine Cocaine Screen Not Detected (Not Detect) U Marijuana (THC) Screen POSITIVE H (Not Detect) Ethyl Alcohol mg/dL Independent Interpretation I performed an independent interpretation of an: EKG Interpretation: Rate: 78 Rhythm: afib [place]: left RBBB ST T wave : no MILLICENT, inverted t waves V1-V4, flat t waves inf leads qTC: normal prior studies: no change from November The study has been interpreted contemporaneously by me. . External Record Review External record reviewed: Inpatient record, Outpatient record and Prior outpatient labs Discharge Plan Discharge Clinical Impression: Accidental drug ingestion Qualifiers: Encounter type: initial encounter Qualified Code(s): T50.901A - Poisoning by unspecified drugs, medicaments and biological substances, accidental (unintentional), initial encounter Patient Disposition: Still a Patient
[2023-01-31 17:36] LABS: MANUAL DIFF FLAG NO
--- NOTE | 2023-01-31 17:44 | MHC.EDTECH ---
Patient changed over
[2023-01-31] MEDS: ondansetron HCL 4 MG/2 ML VIAL IVPUSH (17:46)
[2023-01-31] MEDS: Pantoprazole Sodium 40 MG/10 ML VIAL IVPUSH (17:48)
[2023-01-31 17:51] VITALS: BP 113/69; PULSE 81; RESP 12; O2SAT 99
[2023-01-31 17:51] LABS: VBG Base Excess 2.3 mmol/L; VBG HCO3 25 mmol/L (22-26); VBG pCO2 36 mmHg; VBG pH 7.46 (7.32-7.43); VBG pO2 56 mmHg
[2023-01-31 17:51] LABS: Basophils Absolute Auto 0.1 X10*3/uL (0.0-0.2); Basophils Percent Auto 1.2 % (0-2); Eosinophils Absolute Auto 0.1 X10*3/uL (0.0-0.4); Eosinophils Percent Auto 1.2 % (0-4); Hematocrit 36.1 % (42.0-52.0); Hemoglobin 10.2 g/dl (14.0-18.0); Imm Gran Abs Auto 0.02 X10*3/uL (0.00-0.03); Imm Gran Pct Auto 0.3 % (0.0-0.4); Lymphocytes Absolute Auto 1.6 X10*3/uL (1.2-4.9); Lymphocytes Percent Auto 23.8 % (20-40); Mean Corpuscular HGB Conc 28.3 g/dl (31.0-36.0); Mean Corpuscular Hemoglobin 20.6 pg (27.0-33.0); Mean Corpuscular Volume 72.9 fL (80.0-98.0); Mean Platelet Volume 9.5 fL (9.4-12.4); Monocytes Absolute Auto 0.5 X10*3/uL (0.1-1.2); Monocytes Percent Auto 7.8 % (2-11); NRBC Pct Auto 0.4 /100WBC (0.0-0.2); Neutrophils Absolute Auto 4.4 x10*3/uL (2.0-8.3); Neutrophils Percent Auto 65.7 % (45-73); Platelet Count 331 X10*3/uL (160-400); Red Blood Count 4.95 X10*6/uL (4.60-5.80); Red Cell Distribution Width 21.9 % (11.0-16.0); White Blood Count 6.8 X10*3/uL (4.8-10.8)
[2023-01-31 17:52] LABS: Venous Blood Gas Refer to POC result
[2023-01-31 17:55] LABS: Acetaminophen LAB < 17 mcg/mL (<30); Alanine Aminotransferase 10 U/L (0-40); Albumin Level 2.8 g/dL (3.5-5.0); Alkaline Phosphatase 93 U/L (39-117); Anion Gap 15 (12-20); Aspartate Amino Transferase 32 U/L (5-37); Bilirubin Direct 0.1 mg/dL (0.0-0.5); Bilirubin Total 0.3 mg/dL (0.0-1.0); Blood Urea Nitrogen 15 mg/dL (9-16); Calcium 8.3 mg/dL (8.4-10.2); Carbon Dioxide 21 mmol/L (22-29); Chloride 107 mmol/L (96-108); Creatinine Clr Calc Pharmacy 83.2; Estimated Glomerular Filt Rate > 60; Ethanol < 10 mg/dL; Glucose Random 141 mg/dL (60-115); Lipase 35 U/L (8-78); Magnesium 2.2 mg/dL (1.6-2.6); Potassium 4.4 mmol/L (3.3-5.1); Salicylate < 5.0 mg/dL (15-30); Sodium 139 mmol/L (135-145); Total Protein 7.1 g/dL (6.5-8.0)
--- NOTE | 2023-01-31 18:08 | PC.NURSE ---
this nurse called poison control who recommended checking Salicylate and Tylenol levels Q2H until they peack and trend downward. If levels rech 30mg/dl, it is recommended that Bicarb be initiated. The responder on the phone asked us to call if we need the Bicarb protocol. First salicylate and Tylenol labs were drawn at 17:30, it is recommended they be drawn again at 1930. aware of conversation with poison control
--- NOTE | 2023-01-31 18:27 | PC.NURSE ---
urine sample sent to lab, obtained via straight cath, pt reports I cant pee, can't you go up there and get it
[2023-01-31 18:33] LABS: Appearance Urine Clear; Color Urine Yellow; Glucose Urine UA >=1000 mg/dL (Negative); Leukocyte Esterase Urine Negative (Negative); Nitrite Urine Negative (Negative); Specific Gravity - Urine >= 1.030 (1.005-1.025); UMIC TRIGGER UACC YES; Urine Blood Negative (Negative); Urine Ketones Negative (Negative); Urine Protein Negative (Neg-Trace)
[2023-01-31 18:40] LABS: INTERNATIONAL NORM RATIO 2.8 (0.9-1.1); Prothrombin Time 34.2 SEC (11.1-13.3)
[2023-01-31 18:41] LABS: Amphetamine Screen Urine Not Detected (Not Detect); Barbiturates, Urine Not Detected (Not Detect); Benzodiazepines Screen Urine Not Detected (Not Detect); Cannabinoid Screen Urine POSITIVE (Not Detect); Cocaine Screen Urine Not Detected (Not Detect); Fentanyl, urine Not Detected (Not Detect); Opiate Screen Urine Not Detected (Not Detect); Phencyclidine Screen Urine Not Detected (Not Detect)
--- NOTE | 2023-01-31 19:11 | PC.NURSE ---
This RN assumed care at 1915. Patient able to make needs known.
[2023-01-31 19:38] LABS: Bacteria Urine None Seen (None Seen); Hyaline Casts Urine 0-2 /LPF (0-2); RBC Urine 0-2 /HPF (0-2); Squamous Epithelial Cell Urine 0-2 /HPF (0-2); WBC Urine 0-5 /HPF (0-5)
[2023-01-31 20:06] LABS: Acetaminophen LAB < 17 mcg/mL (<30); Salicylate < 5.0 mg/dL (15-30)
--- NOTE | 2023-01-31 20:34 | PC.NURSE ---
This RN spoke with Vandana at Poison Control at 2032. Results discussed, patient's case closed by Poison Control.
[2023-01-31 21:10] VITALS: BP 109/79; PULSE 86; RESP 19; TEMP 36.3; O2SAT 98
--- NOTE | 2023-01-31 21:15 | PHA.MEDREC ---
Pharmacy Consult ? Medication Reconciliation Pharmacy has completed the medication reconciliation. Patient is a poor historain. Only reported Gabapentin and Aspirin initially. When asked if he takes any medications for his heart he reported metoprolol tartrate. ED discharge summary from [facility] patient on digoxin, patient has no fill history for digoxin. When asked if he takes digoxin he stated I do not know, I think so. Patient continually said i don't know when asked about his medications. He only wants pain medications for his neck. Utilized claim history to complete med rec. Andria Dalton, LewisD
[2023-02-01] MEDS: Ondansetron ODT 4 MG TAB.RAPDIS TRANSLINGU ×2 (03:52→10:02)
[2023-02-01 05:13] VITALS: BP 117/74; PULSE 100; RESP 20; TEMP 36; O2SAT 96
[2023-02-01] MEDS: Omeprazole 20 MG CAPSULE.DR PO (05:39)
[2023-02-01] MEDS: Sacubitril/Valsartan 24/26 1 TAB TABLET PO (08:48)
[2023-02-01] MEDS: Apixaban 5 MG TABLET PO (08:48)
[2023-02-01] MEDS: Ferrous Sulfate 324 MG TABLET.DR PO (08:48)
[2023-02-01] MEDS: Thiamine HCL 100 MG TABLET PO (08:48)
[2023-02-01] MEDS: Gabapentin 400 MG CAPSULE 800 MG PO (08:48)
[2023-02-01] MEDS: Metoprolol Tartrate 25 MG TABLET PO (08:52)
[2023-02-01 08:59] VITALS: PULSE 96; RESP 20; O2SAT 98
--- NOTE | 2023-02-01 10:14 | MHC.CM.PN ---
Addendum entered by Serenity Aquino 02/01/23 13:04: Pt is active w/[facility]: they state they are working to assist pt w/placement to a SNF and may have him placed early this coming week. [facility] aware of pt d/c to home today and will see him Friday am. Pt requesting to return to home - states he understands he should not be taking ASA, NSAIDS for pain management d/t bleed risk and that he can only take acetaminophen according to label dosing. Pt has a cellphone at bedside and will call his dtr for transportation to home. ED care team aware of plan. Original Note: Received consult for assessment of d/c needs: Met w/pt to discuss: Pt states he is in 10/10 neck and shoulder pain and w/accompanying nausea. He states pain is chronic and is requesting IV Dilaudid - that's the only medication that works. [facility] always gives me that Pt states he lives alone but has VNA from an unknown agency 2x weekly. He cannot recall agency nor what assessment/teaching they provide. Pt notes he has been to [facility] in past and would return. Pt is ambulatory and does not appear to have a skilled need for STR. Inquired on pt's perceived need for STR: he states he needs someone to administer narcotics, provide meals and ADL support while he is experiencing an exacerbation of neck pain. Pt limited further conversation d/t his request for narcotic pain management. Informed RN of request: CM to reapproach pt once pain level has improved. PCP is Dr. Padilla. Call placed to [facility]: pt was there 01/04 - 01/05 w/GI and pain complaints. Prior to this visit, he was admitted in December undergoing an exp. laparotomy. Will attempt to locate VNA for more information. CM to follow.
[2023-02-01] MEDS: Empagliflozin 10 MG TABLET PO (11:26)
[2023-02-01] MEDS: Acetaminophen 325 MG TABLET 650 MG PO (11:26)
[2023-02-01] MEDS: DULoxetine HCl 20 MG CAPSULE.DR 80 MG PO (11:26)
[2023-02-01] MEDS: Fluticasone Propionate 250 MCG BLST.W.DEV 1 PUFF INHALE (11:31)
--- NOTE | 2023-02-01 12:00 | MHC.EDTECH ---
Patient refused breakfast tray this morning, I was able to convince him to eat half a yogurt. Lunch arrived around 1200 noon, I offered patient his grilled cheese, soup, and fruit. He states he can not eat at this time. Patient is aware we have sandwiches on the unite if he gets hungry. SG
== END 2023-02-01 13:04 | disposition home or self-care (01) ==
PROVIDERS: Emergency Provider Emergency Medicine
DX: T39.011A Poisoning by aspirin, accidental (unintentional), initial encounter (principal); R42 Dizziness and giddiness; Y92.9 Unspecified place or not applicable; I11.0 Hypertensive heart disease with heart failure; I50.9 Heart failure, unspecified; F12.90 Cannabis use, unspecified, uncomplicated; J44.9 Chronic obstructive pulmonary disease, unspecified; Z99.81 Dependence on supplemental oxygen; Z95.1 Presence of aortocoronary bypass graft; Z87.891 Personal history of nicotine dependence
CPT/HCPCS: 36415; 51701; 80048; 80076; 80143; 80179; 80307; 81001; 82803; 83605; 83690; 83735; 85025; 85610; 93005; 96374; 96375; 99285; J2405